=== PATIENT | female | born 1955 | race Caucasian/White ===

== ENCOUNTER 2023-09-22 10:23 | Emergency (ER) | payer MEDICARE, MEDICAID ==
[~2023-09-22] VITALS: Ht 160 cm; Wt 65.9 kg
[2023-09-22 10:27] VITALS: TEMP 98.3
[2023-09-22] MEDS ORDERED: LISI-894 PO (10:32)
[2023-09-22] MEDS ORDERED: ATOR40TA28 PO (10:33)
[2023-09-22] MEDS ORDERED: METF-1211 PO ×3 (10:34→10:38)
[2023-09-22] MEDS: KETOROLAC TROMETHAMINE 60 MG/2 ML VIAL IM ONE (11:34)
[2023-09-22 11:45] VITALS: BP 145/72; PULSE 72; RESP 16
[2023-09-22] MEDS ORDERED: IBUP-1492 PO (11:56)
== END 2023-09-22 17:37 | disposition home or self-care (01) ==
LOC: EMS 10:24
DX: S83.91XA Sprain of unspecified site of right knee, initial encounter (principal); M19.90 Unspecified osteoarthritis, unspecified site; E11.9 Type 2 diabetes mellitus without complications; E78.00 Pure hypercholesterolemia, unspecified; I10 Essential (primary) hypertension; X58.XXXA Exposure to other specified factors, initial encounter; Y93.89 Activity, other specified; Y92.89 Other specified places as the place of occurrence of the external cause; Y99.8 Other external cause status
CPT/HCPCS: 99283; 29505; 73562; 96372; J1885